=== PATIENT | male | born 1960 | race Caucasian/White ===

== ENCOUNTER 2018-11-23 16:27 | Emergency (ER) | payer BC ==
[2018-11-23 16:32] VITALS: BP 142/64; PULSE 77; RESP 18; TEMP 98.3
[2018-11-23] MEDS ORDERED: DIPH,PERTUS(ACELL)TETVAC-LF 0.5 ML VIAL IM ONE (17:01)
--- NOTE | 2018-11-23 17:24 | ED ---
General Adult HPI - General Chief complaint: Wound/Laceration Stated complaint: chin lac Time Seen by Provider: 11/23/18 16:33 Source: patient, RN notes reviewed, old records reviewed Mode of arrival: ambulatory Limitations: no limitations - History of Present Illness Initial comments: 57-year-old male patient with no pertinent past medical history of present ED with abrasion on chin after he was hit with a board. 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 She denies any loss of consciousness, pain in neck, headache. Patient reports a laceration of unknown size on chin. Patient does have facial hair in that region. Patient denies any other complaints. Systemic: Pt denies fatigue, myalgia, fever/chills, rash. Pt denies weakness, night sweats, weight loss. Neuro: Pt denies headache, visual disturbances, syncope or pre-syncope. HEENT: Pt denies ocular discharge or irritation, otalgia, rhinorrhea, pharyngitis or notable lymphadenopathy. Cardiopulmonary: Pt denies chest pain, SOB, heart palpitations, dyspnea on exertion. Abdominal/GI: Pt denies abdominal pain, n/v/d. : Pt denies dysuria, burning w/ urination, frequency/urgency. Denies new onset urinary or bowel incontinence. MSK: Pt denies myalgia, loss of strength or function in extremities. Neuro: Pt denies new onset weakness, paresthesias. - Related Data Previous Rx's Medication Instructions Recorded Cephalexin [Keflex] 500 mg PO Q12HR 3 Days #6 cap 11/23/18 Allergies Allergy/AdvReac Type Severity Reaction Status Date / Time No Known Allergies Allergy Verified 11/23/18 16:31 Review of Systems ROS Statement: Those systems with pertinent positive or pertinent negative responses have been documented in the HPI. ROS Other: All systems not noted in ROS Statement are negative. Past Medical History Past Medical History: No Reported History History of Any Multi-Drug Resistant Organisms: None Reported Past Surgical History: No Surgical Hx Reported Additional Past Surgical History / Comment(s): PREV. COLONOSCOPY/EGD Additional Past Anesthesia/Blood Transfusion Reaction / Comment(s): STATES TAKES A LONG TIME TO AWAKEN FROM ANES. Past Psychological History: No Psychological Hx Reported Smoking Status: Never smoker Past Alcohol Use History: Occasional Past Drug Use History: None Reported General Exam - General Exam Comments Initial Comments: Constitutional: NAD, AOX3, Pt has pleasant affect. HEENT: NC/AT, trachea midline, neck supple, no lymphadenopathy. Posterior pharynx non erythematous, without exudates. External ears appear normal, without discharge. Mucous membranes moist. Eyes PERRLA, EOM intact. There is no scleral icterus. No pallor noted. Full active range of motion jaw. No TMJ or mandibular tenderness. Patient able to bite down on popsicle stick and lateral and anterior aspects of jaw. Cardiopulmonary: RRR, no murmurs, rubs or gallops, no JVD noted. Lungs CTAB in anterior and posterior polanco. No peripheral edema. Abdominal exam: Abdomen soft and non-distended. Abdomen non-tender to palpation in all 4 quadrants. Bowel sounds active in LLQ. No hepatosplenomegaly. No ecchymosis Neuro: CN II-XII intact. No nuchal rigidity. MSK: 2cm abrasion noted on anterior chin, not open. No posterior calf tenderness bilaterally, homans sign negative bilaterally. Posterior tibialis and radial pulse +2 bilaterally. Sensation intact in upper and lower extremities. Full active ROM in upper and lower extremities, 5/5 stregnth. Limitations: no limitations Course Vital Signs 11/23/18 16:29 Temperature 98.3 F Pulse Rate 77 Respiratory 18 Rate Blood Pressure 142/64 O2 Sat by Pulse 99 Oximetry Medical Decision Making - Medical Decision Making 57-year-old male patient with no pertinent past medical history of present ED with abrasion on chin after he was hit with a board. 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 She denies any loss of consciousness, pain in neck, headache. Patient reports a laceration of unknown size on chin. Patient does have facial hair in that region. Patient denies any other complaints. Patient vital signs stable, afebrile. Physical exam displayed: 2cm abrasion noted on anterior chin, not open. Full active range of motion jaw. No TMJ or mandibular tenderness. Patient able to bite down on popsicle stick and lateral and anterior aspects of jaw. Patient was recommended CT of brain and cervical spine, patient declined states he does not need imaging. Abrasion does not require any closure. Antibiotic ointment placed, bandage placed 2 days of antibiotic prophylaxis. Patient will follow-up with primary care provider in 1-2 days for continued evaluation of healing. Patient educated on signs symptoms of infection, patient was understanding. Patient return to ER condition worsens in any way. Case discussed with Dr. Baer. Disposition Clinical Impression: Abrasion Disposition: HOME SELF-CARE Condition: Stable Instructions (If sedation given, give patient instructions): Abrasion (ED) Additional Instructions: Patient to adhere to previously discussed treatment plan and will take medication(s) as directed. Patient to follow up with PCP in 1-2 days. Patient to return to ED if symptoms do not improve. Present medications as prescribed. Please monitor for signs symptoms of infection. Please return to ER condition worsens in anyway. Please monitor for signs and symptoms of infection including: redness, warmth, drainage, discharge. Prescriptions: Cephalexin [Keflex] 500 mg PO Q12HR 3 Days #6 cap Is patient prescribed a controlled substance at d/c from ED?: No Referrals: None,Stated [Primary Care Provider] - [facility]2 days
== END 2018-11-23 17:59 | disposition home or self-care (01) ==
LOC: EC 16:27
DX: S00.81XA Abrasion of other part of head, initial encounter (principal); Z23 Encounter for immunization; W22.8XXA Striking against or struck by other objects, initial encounter; Y92.009 Unspecified place in unspecified non-institutional (private) residence as the place of occurrence of the external cause
CPT/HCPCS: 90471; 90715; 99283

== ENCOUNTER 2020-09-28 15:53 | Emergency (ER) | payer BC ==
[2020-09-28 15:58] VITALS: BP 153/82; PULSE 69; RESP 20; TEMP 98.2
[2020-09-28] MEDS ORDERED: LIDOCAINE 1% INJ 10MG/ML (20 ML MDV) SQ ONE (16:08)
--- NOTE | 2020-09-28 16:47 | ED ---
Wound/Laceration HPI - General Chief Complaint: Wound/Laceration Stated Complaint: Head Lac Time Seen by Provider: 09/28/20 16:00 Source: patient Mode of arrival: ambulatory Limitations: no limitations - History of Present Illness Initial Comments: Patient is a 59-year-old male presenting to the emergency Department with complaints of laceration on the right side of his head. Patient states he was using a saw overhead when it kicked back and the handle hit him in the head. He denies any loss of consciousness. This happened approximately one hour ago. He does admit to very mild headache but no dizziness, no nausea or vomiting. He denies being on blood thinners. He has no pertinent past medical history. Patient is up-to-date with his tetanus vaccine. He has no further complaints. - Related Data Previous Rx's Medication Instructions Recorded Cephalexin [Keflex] 500 mg PO Q12HR 3 Days #6 cap 11/23/18 Allergies Allergy/AdvReac Type Severity Reaction Status Date / Time No Known Allergies Allergy Verified 09/28/20 15:57 Review of Systems ROS Statement: Those systems with pertinent positive or pertinent negative responses have been documented in the HPI. ROS Other: All systems not noted in ROS Statement are negative. Past Medical History Past Medical History: No Reported History History of Any Multi-Drug Resistant Organisms: None Reported Past Surgical History: No Surgical Hx Reported Additional Past Surgical History / Comment(s): PREV. COLONOSCOPY/EGD Additional Past Anesthesia/Blood Transfusion Reaction / Comment(s): STATES TAKES A LONG TIME TO AWAKEN FROM ANES. Past Psychological History: No Psychological Hx Reported Smoking Status: Never smoker Past Alcohol Use History: Occasional Past Drug Use History: None Reported General Exam - General Exam Comments Initial Comments: GENERAL: Patient is well-developed and well-nourished. Patient is nontoxic and in no acute distress. HEAD: Atraumatic, normocephalic. No hematomas. EYES: Pupils equal round and reactive to light, extraocular movements intact, sclera anicteric, conjunctiva are normal. Eyelids were unremarkable. ENT: TMs normal, nares patent, oropharynx clear without exudates. Moist mucous membranes. NECK: Normal range of motion, supple without lymphadenopathy or JVD. LUNGS: Unlabored respirations. Breath sounds clear to auscultation bilaterally and equal. No wheezes rales or rhonchi. HEART: Regular rate and rhythm without murmurs, rubs or gallops. ABDOMEN: Soft, nontender, normoactive bowel sounds. No guarding, no rebound. No masses appreciated. : Deferred MUSCULOSKELETAL: Normal extremities with adequate strength and normal range of motion, no pitting or edema. No clubbing or cyanosis. NEUROLOGICAL: Patient is alert and oriented x 3. Motor and sensory are also intact. Cranial nerves II through XII grossly intact. Symmetrical smile. Normal speech, normal gait. PSYCH: Normal mood, normal affect. SKIN: Warm, Dry, normal turgor, no rashes. Patient has a 3 cm superficial laceration to right side of the skull just superior to the forehead. There is minimal bleeding. Limitations: no limitations Course Vital Signs 09/28/20 15:55 Temperature 98.2 F Pulse Rate 69 Respiratory 20 Rate Blood Pressure 153/82 O2 Sat by Pulse 99 Oximetry Procedures - Laceration Laceration #1 Consent Obtained: verbal consent Indication: laceration Site: scalp Size (cm): 3 Description: linear Depth: simple, single layer Anesthetic Used: lidocaine 1% Anesthesia Technique: local infiltration Amount (mls): 2 Pre-repair: wound explored Type of Sutures: nylon Size of Sutures: 4-0 Number of Sutures: 2 Technique: simple, interrupted Patient Tolerated Procedure: well Medical Decision Making - Medical Decision Making Patient is a 59-year-old male here for a simple 3 cm superficial laceration to the right side of the scalp just superior to the forehead. There was no loss of consciousness, patient's exam is otherwise unremarkable. He is on blood thinners. His tetanus vaccine is up-to-date. The middle portion of the wound did require 2 sutures, wound was then cleaned, there is no active bleeding. He is stable for discharge. He can have sutures removed in 7-10 days. He is in agreement with this plan of care. Disposition Clinical Impression: Laceration of scalp Disposition: HOME SELF-CARE Condition: Stable Instructions (If sedation given, give patient instructions): Care For Your Stitches (ED) Additional Instructions: Please return to the Emergency Department if symptoms worsen or any other concerns. Stitches need to be removed in approximately 7-10 days. Keep area clean and dry. Is patient prescribed a controlled substance at d/c from ED?: No Referrals: None,Stated [Primary Care Provider] - 1-2 days
== END 2020-09-28 16:51 | disposition home or self-care (01) ==
LOC: EC 15:53
DX: S01.01XA Laceration without foreign body of scalp, initial encounter (principal); W22.8XXA Striking against or struck by other objects, initial encounter; Y93.89 Activity, other specified
CPT/HCPCS: 12002; 99282; J2001

== ENCOUNTER → 2021-07-11 | Outpatient (CLI) | payer BC ==
[2021-07-11 16:35] LABS: Basophils # (A) 0.07 X 10*3/uL (0.00-0.10); Basophils % (A) 1.3 %; Eosinophils # (A) 0.33 X 10*3/uL (0.04-0.35); Eosinophils % (A) 6.2 %; HCT 49.2 % (39.6-50.0); HGB 16.2 g/dL (13.0-17.0); Lymphocytes # (A) 1.28 X 10*3/uL (0.90-5.00); MCH 29.6 pg (27.0-32.0); MCHC 32.9 g/dL (32.0-37.0); MCV 89.8 fL (80.0-97.0); Mean Platelet Volume 11.4 fL (9.5-12.2); Monocytes # (A) 0.48 X 10*3/uL (0.20-1.00); Neutrophils # (A) 3.15 X 10*3/uL (1.80-7.70); Neutrophils % (A) 59.1 %; Platelet Count 208 X 10*3/uL (140-440); RBC 5.48 X 10*6/uL (4.40-5.60); WBC 5.33 X 10*3/uL (4.50-10.00)
[2021-07-11 18:30] LABS: ALT 26 U/L (10-49); AST 21 U/L (14-35); African American GFR (CKD) 92.8 (60.0-200.0); Albumin 4.5 g/dL (3.8-4.9); Albumin/Globulin Ratio 1.81 (1.60-3.17); Alkaline Phosphatase 82 U/L (41-126); BUN/Creat Ratio 22.55 Ratio (12.00-20.00); Calcium 9.6 mg/dL (8.7-10.3); Carbon Dioxide 24.6 mmol/L (21.6-31.8); Chloride 102 mmol/L (96-109); Chol/HDL Ratio 3.34 Ratio; Globulin 2.5 g/dL (1.6-3.3); Glucose 96 mg/dL (70-110); Non-African American GFR(CKD) 80.1 (60.0-200.0); Potassium 4.4 mmol/L (3.5-5.5); Sodium 138 mmol/L (135-145); VLDL Calculation 15.54 mg/dL (5.00-40.00)
== END | disposition home or self-care (01) ==
LOC: LABWHC1 08:55
PROVIDERS: ATTEND Family Medicine
DX: Z00.00 Encounter for general adult medical examination without abnormal findings (principal); Z12.5 Encounter for screening for malignant neoplasm of prostate; Z11.59 Encounter for screening for other viral diseases
CPT/HCPCS: 36415; 80053; 80061; 84153; 84443; 85025; 86803

== ENCOUNTER 2021-11-04 10:21 | Day surgery (SDC) | payer BC ==
[2021-11-02 16:08] VITALS: BMI 25.7
[~2021-11-04 10:21] MED LIST: LACTATED RINGERS 1,000 ML IV SCH; LIDOCAINE 1% (10MG/ML) FOR IV START INTRADERMA PRN
[2021-11-04 10:46] VITALS: TEMP 97.3
[2021-11-04] MEDS ORDERED: PROPOFOL 10 MG/ML 20 ML VIAL IV ONE (11:04)
--- NOTE | 2021-11-04 11:27 | P.PCN ---
Date of Procedure: 11/04/21 Procedure(s) Performed: BRIEF HISTORY: Patient is a 60-year-old pleasant white male scheduled for an elective colonoscopy as a part of screening for colorectal neoplasia. PROCEDURE PERFORMED: Colonoscopy. PREOPERATIVE DIAGNOSIS: Screening for colon cancer. IV sedation per Anesthesia. PROCEDURE: After informed consent was obtained, the patient, was brought into the endoscopy unit. IV sedation was administered by Anesthesia under continuous monitoring. Digital rectal examination was normal. Initially the Olympus CF-160 flexible video colonoscope was then inserted in the rectum, gradually advanced into the cecum without any difficulty. Careful examination was performed as the scope was gradually being withdrawn. Ileocecal valve and the appendiceal orifice were visualized and appeared normal. Prep was fair. There was some sticky still noted in the base of the cecum there was thoroughly irrigated despite adequate visualization was not possible.stool. Mucosa of the cecum, ascending colon, transverse colon, descending colon, sigmoid colon, and rectum appeared normal. Scattered left-sided diverticulosis seen. Retroflexion was performed in the rectum and no lesions were seen. The patient tolerated the procedure well. IMPRESSION: Normal-appearing colon from rectum to cecum with no evidence of colorectal neoplasia. Scattered left sided diverticulosis RECOMMENDATIONS: Findings of this examination were discussed with the patient as well as his family. He was advised to have a repeat screening colonoscopy in 10 years..
[2021-11-04 11:43] VITALS: BP 143/85; PULSE 71; RESP 15
== END 2021-11-04 12:03 | disposition home or self-care (01) ==
LOC: ORWHC2ENDO 10:21
PROVIDERS: ATTEND Internal Medicine Gastroenterology
DX: Z12.11 Encounter for screening for malignant neoplasm of colon (principal); K57.30 Diverticulosis of large intestine without perforation or abscess without bleeding
CPT/HCPCS: J2704; G0121; 45378

== ENCOUNTER → 2024-09-21 | Outpatient (CLI) | payer BC ==
[2024-09-21 20:25] LABS: Basophils # (A) 0.08 X 10*3/uL (0.00-0.10); Basophils % (A) 1.4 %; Eosinophils # (A) 0.35 X 10*3/uL (0.04-0.35); Eosinophils % (A) 6.2 %; HCT 44.2 % (39.6-50.0); Lymphocytes # (A) 1.29 X 10*3/uL (0.90-5.00); Lymphocytes % (A) 22.7 %; MCH 29.2 pg (27.0-32.0); MCHC 33.9 g/dL (32.0-37.0); Mean Platelet Volume 12.6 FL (9.5-12.2); Monocytes # (A) 0.58 X 10*3/uL (0.20-1.00); Monocytes % (A) 10.2 %; NRBC Per 100 WBC 0 X 10*3/uL (0.00-0.01); Neutrophils # (A) 3.36 X 10*3/uL (1.80-7.70); Neutrophils % (A) 59.1 %; Platelet Count 224 X 10*3/uL (140-440); RBC 5.14 X 10*6/uL (4.40-5.60); RDW 13.1 % (11.5-14.5); WBC 5.68 X 10*3/uL (4.50-10.00)
[2024-09-22 03:17] LABS: ALT 29 U/L (10-49); AST 26 U/L (14-35); Albumin 4.4 g/dL (3.8-4.9); Albumin/Globulin Ratio 1.76 Ratio (1.60-3.17); Alkaline Phosphatase 70 U/L (41-126); Blood Urea Nitrogen 17.1 mg/dL (9.0-27.0); Calcium 9.8 mg/dL (8.7-10.3); Carbon Dioxide 22.7 mmol/L (21.6-31.8); Chloride 104 mmol/L (96-109); Chol/HDL Ratio 2.79 Ratio; Globulin 2.5 g/dL (1.6-3.3); Glucose 92 mg/dL (70-110); LDL Cholesterol,Calculated 80.4 mg/dL (0.0-131.0); Potassium 4.2 mmol/L (3.5-5.5); Sodium 139 mmol/L (135-145); Total Bilirubin 0.5 mg/dL (0.3-1.2); Total Protein 6.9 g/dL (6.2-8.2); VLDL Calculation 12.04 mg/dL (5.00-40.00)
== END | disposition home or self-care (01) ==
LOC: LABWHC1 15:52
PROVIDERS: ATTEND Family Medicine
DX: Z00.00 Encounter for general adult medical examination without abnormal findings (principal)
CPT/HCPCS: 36415; 80053; 80061; 84443; 85025

== ENCOUNTER → 2024-09-24 | Outpatient (CLI) | payer BC ==
--- NOTE | 2024-09-24 16:47 | CT ---
EXAMINATION TYPE: CT sinus wo con CT DLP: 493.7 mGycm, Automated exposure control for dose reduction was used. DATE OF EXAM: 09/24/2024 4:41 PM COMPARISON: None. CLINICAL INDICATION:Male, 63 years old with history of R51.9; PHH, Chronic Headaches. CONTRAST: None. TECHNIQUE: Multiple thin axial images were obtained through the paranasal sinuses without the use of IV contrast. Additional coronal and sagittal reformatted images were submitted for evaluation. FINDINGS: Frontal sinuses: Normally developed and aerated. Frontal Recess: Clear Maxillary Sinuses: Normally developed. The left maxillary sinus is relatively clear. Near-complete op acification of the right maxillary sinus. Maxillary Infundibula([facility]): Clear, No Corby cells identified. Ethmoid sinuses: Normally developed and aerated. Ethmoidal notch: Supraorbital pneumatization is iden tified. Sphenoid sinuses: Normally developed and aerated. There is partial sellar sphenoid sinus pneumatizati on without evidence of dehiscence. No dehiscence of carotid canal. No evidence of optic nerve dehisc ence within the sphenoid sinus. No evidence of Onodi cells. Sphenoethmoidal recesses: Clear. Nasal septum: Mildly deviated to the right.. Nasal Turbinates: Within normal limits. Mastoid air cells & middle ears: The air cells are clear. The middle ears are grossly unremarkable. Modified Soft tissues & Brain: Partially seen without gross abnormality. Globes are intact. Other: Cribriform plate demonstrates symmetric Keros classification type 3 cribriform plate. No evidence of bony dehiscence of skull base. Lamina papyracea is intact without evidence of remote orbital fracture or orbital prolapse into the e thmoid sinus. IMPRESSION: 1. Near complete opacification of the right maxillary sinus. Underlying mucous retention cyst or poly p is not excluded. 2. The left ostiomeatal unit, bilateral frontonasal and bilateral sphenoethmoidal recesses are clear. There is opacification at the opening of the right ostiomeatal unit. [facility], , 09/24/2024 4:45 PM
== END | disposition home or self-care (01) ==
LOC: RADCTMAIN 16:08
PROVIDERS: ATTEND Otolaryngology
DX: R51.9 Headache, unspecified (principal)
CPT/HCPCS: 70486